=== PATIENT | female | born 1965 | race Caucasian/White ===

== ENCOUNTER 2018-06-20 11:33 | Outpatient (CLI) | payer BC, SELFPAY ==
[2018-06-20 12:49] LABS: Abs Immature Grans 0.02 k/cumm (0.0-0.09); Absolute Basophil Count 0.03 k/cumm (0.0-0.2); Absolute Eosinophil Count 0.28 k/cumm (0.0-0.7); Absolute Lymphocyte Count 1.55 k/cumm (1.2-3.4); Absolute Monocyte Count 0.73 k/cumm (0.11-0.7); Absolute Neutrophil Count 3.84 k/cumm (1.2-6.7); Basophils % 0.5; Eosinophils % 4.3; HCT 41.9 % (36.0-46.0); HGB 13.9 g/dL (12.0-15.5); Immature Grans % 0.3; Mean Corp. HGB Concentration 33.2 g/dL (32.0-36.0); Mean Corpuscular Hemoglobin 28.8 pg (27.0-33.0); Mean Corpuscular Volume 86.7 fL (80-95); Mean Platelet Volume 9.2 fL (8.0-11.0); Monocytes % 11.3; Neutrophils % 59.6; Platelet Count 356 x1000/uL (130-400); RBC 4.83 m/cumm (4.00-5.20); RBC Distribution Width 12.9 % (11.7-14.6); White Blood Cell Count 6.45 k/cumm (4.4-10.8)
[2018-06-20 13:17] LABS: ALT 39 U/L (12-78); AST 16 U/L (15-37); Albumin 3.8 g/dL (3.4-5.0); Alkaline Phosphatase 86 U/L (46-116); Anion Gap 9.2 mmol/L (3-11); BUN 15 mg/dL (7-18); Bilirubin, Total 0.2 mg/dL (0.2-1.0); CO2 28.8 mmol/L (21.0-32.0); CREATININE 0.65 mg/dL (0.55-1.02); Calcium 9.3 mg/dL (8.5-10.1); Chloride 101 mmol/L (98-107); Glucose 113 mg/dL (70-100); Potassium 4.2 mmol/L (3.5-5.1); Sodium 139 mmol/L (136-145); TSH (W/Ref FT4) 0.89 uIU/mL (0.358-3.74)
[2018-06-20 13:42] LABS: ESR 15 MM/HR (0-30)
== END 2018-06-20 11:53 ==
PROVIDERS: PCP Family Medicine; Visit Provider Internal Medicine
DX: F41.0 Panic disorder [episodic paroxysmal anxiety] (principal)
CPT/HCPCS: 36415; 80053; 85652; 84443; 85025

== ENCOUNTER 2018-06-28 01:12 | Outpatient (CLI) | payer OTHER, SELFPAY ==
--- NOTE | 2018-06-28 09:02 | DI.RAD_ITS ---
SYMPTOMS/DIAGNOSIS: CERVICALGIA, M54.2; ASTHMA, J45.909; LUMBAR STRAIN, S39.012A CERVICAL SPINE: Odontoid, AP, lateral and bilateral oblique views were obtained. There is normal alignment of the cervical spine. The odontoid is intact. The lateral masses are well aligned. No acute fractures or subluxations are seen. At C4-C5, there are endplate osteophytes present. At C5-C6, there is disc space narrowing and endplate osteophytes. At C6-C7, endplate osteophytes are present. No significant neural foraminal encroachment is seen. The bones are normally mineralized. IMPRESSION: Mild to moderate degenerative changes in the cervical spine. CHEST X-RAY, PA AND LATERAL: Comparison is 07/31/17. The heart is normal in size. The lungs are clear. The mediastinal structures and pleura appear intact. IMPRESSION: Normal chest. LUMBAR SPINE: AP, lateral and bilateral oblique views. There are five lumbar-type vertebral bodies. No spondylolysis or spondylolisthesis is seen. Disc space narrowing is seen at T12-L1 and L1-L2. There are endplate osteophytes at all levels of the lumbar spine. Degenerative changes of the facets are seen at L3-4, L4-5 and L5-S1. No acute fracture or subluxation is seen. The bones are normally mineralized. IMPRESSION: Mild degenerative changes in the lumbar spine.
== END 2018-06-28 01:32 ==
PROVIDERS: PCP Family Medicine; Visit Provider Internal Medicine
DX: M54.2 Cervicalgia (principal); M47.812 Spondylosis without myelopathy or radiculopathy, cervical region; M54.5 Low back pain; M47.816 Spondylosis without myelopathy or radiculopathy, lumbar region; J45.909 Unspecified asthma, uncomplicated
CPT/HCPCS: 71046; 72050; 72110

== ENCOUNTER 2018-07-22 00:41 | Outpatient (CLI) | payer OTHER, SELFPAY ==
--- NOTE | 2018-07-22 09:44 | DI.MRI_ITS ---
SYMPTOM/DIAGNOSIS: CONTINUED LOW LUMBAR AND LT SACROILIAC PAIN, M99.03, LT FOOT TINGLING, LIFTING INJURIES LUMBAR SPINE MRI: T 1, T 2 and STIR sagittal, T 1 and T 2 axial sequences were performed. At L 3- 4, there is a left sided disc protrusion which appears to impinge on the anterolateral aspect of the thecal sac and may impinge nerve roots. There is no significant bony neural foraminal encroachment. There are mild facet degenerative changes and ligamentous hypertrophy at this level. The L 4-5 level shows mild concentric disc bulging. There are facet degenerative changes and ligamentous hypertrophy which create mild central canal stenosis but no significant neural foraminal narrowing. There are mild facet degenerative changes at L 4-5. The disc appears intact. The L 1-2 and L 2-3 disc levels are unremarkable. The marrow signal is normal with the exception of a small hemangioma in the L 1 vertebral body. IMPRESSION: Small left sided disc protrusion at L 3-4. Mild central canal stenosis at L 4-5.
== END 2018-07-22 01:01 ==
PROVIDERS: PCP Family Medicine; Visit Provider Family Medicine
DX: M54.5 Low back pain (principal); M53.3 Sacrococcygeal disorders, not elsewhere classified; R20.2 Paresthesia of skin; M51.27 Other intervertebral disc displacement, lumbosacral region; M48.061 Spinal stenosis, lumbar region without neurogenic claudication
CPT/HCPCS: 72148

== ENCOUNTER 2018-08-26 01:31 | Outpatient (CLI) | payer OTHER, SELFPAY ==
--- NOTE | 2018-08-26 10:21 | DI.MRI_ITS ---
SYMPTOMS/DIAGNOSIS: CERVICAL NUMBNESS, LOW BACK PAIN MRI OF THE CERVICAL SPINE: Comparison is made with plain films dated June,. T1, T2, STIR, FLAIR and T2 3D sagittal and gradient-echo axial sequences were performed. At C5-6, there are broad-based disc osteophytes and mild loss of normal disc height. There is concentric disc bulging. There is bilateral neural foraminal narrowing, left greater than right. There is effacement of the anterior CSF space. A small amount of CSF remains present posterior to the cord. The remaining discs show no significant bulging or endplate osteophytes. There is no neural foraminal narrowing at the other levels. There is no disc herniation at any level. The marrow signal and cord signal appear normal. IMPRESSION: Degenerative disc changes caused by lateral neural foraminal narrowing, left greater than right, and mild central canal stenosis.
== END 2018-08-26 01:51 ==
PROVIDERS: PCP Family Medicine; Visit Provider Family Medicine
DX: M54.2 Cervicalgia (principal); R20.0 Anesthesia of skin; M54.5 Low back pain; M50.322 Other cervical disc degeneration at C5-C6 level
CPT/HCPCS: 72141

== ENCOUNTER 2018-08-28 07:46 | Outpatient (CLI) | payer OTHER, SELFPAY ==
--- NOTE | 2018-08-28 08:36 | PDOC.PAIN2 ---
History of Present Illness History of Present Illness Chief Complaint: Low back pain to left lower extremity History of Present Illness: Patient was looking at a client and felt low back pain to her left lower extremities. She notes that she has pain and weakness. She saw Dr. Kathleen luke who recommended a L4 nerve block after reviewing her MRI which shows L3-4 left-sided disc herniation in the lateral recess. Review of Systems Medications/Allergies Allergies Allergy/AdvReac Type Severity Reaction Status Date / Time animal dander Allergy Unverified 08/28/18 07:59 pollen extracts Allergy Unverified 08/28/18 07:59 Objective Exam Other physical findings: Patient makes good eye contact and communicates easily. Back: Nontender to palpation. Provocative maneuvers for SI joint pathology were negative. Kemps maneuver is negative Neuro: Sensory is intact to light touch. Patient can heel and toe walk. Strength on flexion at the hips, flexion and extension at the knees and ankles, dorsiflexion of great toes are 5/5 and symmetric. DTRs are attenuated and weak with patella and Achilles. Straight leg raise negative bilaterally. Ambulatory Orders Medication Instructions Recorded Ca-D3-mag ls-uzhp-wvw-yandy-bor 2 tab PO BID tab.chew 11/02/14 methocarbamol 500 mg tablet 500 mg PO QID #40 tab 06/17/18 albuterol sulfate HFA 90 1 - 2 puff INHALATION Q6H PRN #1 07/26/18 mcg/actuation aerosol inhaler inhaler fluticasone 110 mcg/actuation HFA 220 mcg INHALATION BID #3 puff 07/26/18 aerosol inhaler alprazolam 0.5 mg tablet 0.5 mg PO BID PRN #60 tab-cap 08/22/18 methylphenidate 5 mg tablet 10 mg PO BID #120 tab MDD 4 08/23/18 multivitamin oral liquid 10 ml PO DAILY 08/28/18
--- NOTE | 2018-08-28 08:38 | DI.RAD_ITS ---
SYMPTOM/DIAGNOSIS: LUMBAR RADICULOPATHY C-ARM: Fluoroscopy Time: 27.6 seconds Fluoroscopy was provided for guidance with lumbar spine pain clinic injections. Please see procedure note for details.
--- NOTE | 2018-08-28 09:07 | PDOC.PAIN ---
Pain Clinic Procedure Note Current Active Problems Problem Status Onset Herniated nucleus pulposus, L3-4 left Acute LUMBAR / SACRAL TRANSFORAMINAL INJECTION CATRACHITO POLK has been referred to the [facility] for a transforaminal nerve root block and steroid injection. COMMENTS: Herniated disc L3-4 to the left with left L4 symptoms Patient was interviewed and the medical record reviewed. There were no medical, pharmacologic, radiographic or other structural contraindications to attempting fluoroscopically guided transforaminal nerve root block and epidural steroid injection. Risks and expected side effects as well as potential benefit of the procedure were reviewed and voiced concerns addressed. The printed consent form was signed and witnessed. Standard time-out procedure was performed. Patient was placed in the prone position on the fluoroscopy table and automated blood pressure cuff and pulse oximeter applied. Fluoroscopy was utilized to identify the { left } neural foramen between L4 and L5 . A skin winnie was made for the needle insertion site. A Chlorhexadine prep was carried out, and sterile drapes were applied. Local anesthesia was achieved in the skin and subcutaneous tissues. A 22 gauge curved tip spinal needle was then inserted, advanced with fluoroscopic guidance into the neural foramen, confirmed on the lateral view. After negative aspiration, 2 ml of Omnipaque 240 was injected confirming position in A/P and lateral views. This showed a good spread of dye transforaminally into the epidural space. There was no vascular update with contrast injection under continuous fluoroscopy and digital substraction. 40 mg of Depo-Medrol was injected, followed by 1ml of 0.5% bupivacaine flush for the nerve root block, as well. There was no unusual discomfort expressed.The needle was withdrawn. The patient tolerated the procedure well. A Band-Aid was applied. Vital signs were stable throughout the procedure and were as recorded in nursing records. If given, dosages of intravenous drugs for anxiolysis and analgesia were documented in nursing records. Follow up plans and appointments were discussed. Post procedure instruction was given as documented in nursing records and patient was discharged in the care of an identified local delivery truck driver. COMMENTS: Pain went from 4/10 to 0/10. She will follow-up with Dr. Keller. She can return for repeat injection as well if needed . CC: Meera Stanley MD, DC
[2018-08-28] MEDS: methylPREDNISolone ACETATE 40 MG/ML VIAL IJ (09:11)
[2018-08-28] MEDS: Bupivacaine 0.5% Pres-Free 30 ML VIAL IJ (09:12)
[2018-08-28] MEDS: Omnipaque 240 MG/ML 50 ML BTL IJ (09:12)
[2018-08-28 09:13] VITALS: BP 158/96; PULSE 101; RESP 17; O2SAT 98
== END 2018-08-28 08:06 ==
PROVIDERS: PCP Family Medicine; Visit Provider Anesthesiology Pain Medicine
DX: M51.26 Other intervertebral disc displacement, lumbar region (principal); M54.5 Low back pain
CPT/HCPCS: 64483; 72100; J1030; Q9967

== ENCOUNTER 2018-08-29 07:29 | Outpatient (CLI) | payer BC, SELFPAY ==
--- NOTE | 2018-08-29 15:00 | DI.MAMMO_ITS ---
SYMPTOM/DIAGNOSIS: SCREENING, Z12.31 MAMMOGRAMS: Mammograms were interpreted according to the usual protocol including computer analysis with CAD system, tomosynthesis and C view imaging. Comparison is made with the prior examinations. Breast density, category C. No suspicious masses or microcalcifications are seen. There are again seen partially obscured nodules in both breasts, the largest is seen at the 12 o'clock position of the left breast. Overall there has been no significant change compared to the prior examinations. IMPRESSION: No evidence for malignancy. Yearly mammography is recommended. Category 2. MQSA ASSESSMENT OF FINDINGS: Negative with benign findings. Category 2. Patient will receive a letter notifying them of these results. Bi-RADS category C. The breasts are heterogeneously dense, which may obscure small masses.
== END 2018-08-29 07:49 ==
PROVIDERS: PCP Family Medicine; Visit Provider Family Medicine
CPT/HCPCS: 77063; 77067

== ENCOUNTER 2018-11-27 10:23 | Outpatient (CLI) | payer OTHER, MEDICAID, SELFPAY ==
[2018-11-27 10:30] VITALS: BP 143/87; PULSE 126; RESP 20; TEMP 37.3; O2SAT 97
--- NOTE | 2018-11-27 11:00 | DI.RAD_ITS ---
SYMPTOM/DIAGNOSIS: SACROILIAC JOINT DYSFUNCTION, SACROILIAC JOINT INJECTION C-ARM: Fluoroscopy Time: 26.8 sec, 9.52 mGy. Images submitted from the pain clinic demonstrate needle positioning over the inferior portion of the left SI joint in conjunction with an injection carried out by Dr. Day. Please see the procedure report for further information.
--- NOTE | 2018-11-27 11:08 | PDOC.PAIN ---
Pain Clinic Procedure Note Current Active Problems Problem Status Onset SI (sacroiliac) joint dysfunction Chronic INTRA-ARTICULAR SI JOINT INJECTION CATRACHITO POLK has been referred to the [facility] for intra-articular SI joint injection. COMMENTS: Left sacroiliac joint dysfunction Patient was interviewed and the medical record reviewed. There were no medical, pharmacologic, radiographic or other structural contraindications to attempting fluoroscopically guided intra-articular SI joint injection. Risks and expected side effects as well as potential benefit of the procedure were reviewed and voiced concerns addressed. The printed consent form was signed and witnessed. Standard time-out procedure was performed. Patient was placed in the prone position on the fluoroscopy table and automated blood pressure cuff and pulse oximeter applied. The skin entry point for approaching { left } SI joints was identified under the most advantageous fluoroscopic view and marked. Following thorough Chlorhexadine preparation of the skin and draping and 1% lidocaine infiltration of the skin entry point and subcutaneous tissues, a 22 gauge spinal needle was placed under fluoroscopic guidance into { /left/ } SI joints was identified under the most advantageous fluoroscopic view and marked. Following thorough Chlorhexadine preparation of the skin and draping and 1% lidocaine infiltration of the skin entry point and subcutaneous tissues, a 22 gauge spinal needle was placed under fluoroscopic guidance into { /left/ } SI joint. Intra-articular placement was confirmed by a clear arthrogram resulting from the injection of 0.25ml Omnipaque 240, 1ml 0.5% bupivacaine, and half ml (40mg) of 80mg concentration Depomedrol were injected intra-articularily with an initial reproduction of a significant component of the usual pain. Vital signs were stable throughout the procedure and were as recorded in the docflowsheet by the nursing staff. If given, dosages of intravenous drugs for anxiolysis and analgesia were documented in MAR. Follow up plans and appointments were discussed with the patient. Post procedure instruction was given as documented in nursing documentation and having met discharge criteria, and was discharged from the [facility]. COMMENTS: Her pain went from 11/20-08/22. She will follow up as needed. CC: Meera Stanley MD, DC
[2018-11-27 11:09] VITALS: BP 162/90; PULSE 125; RESP 20; O2SAT 97
[2018-11-27] MEDS: Bupivacaine 0.5% Pres-Free 10 ML VIAL IJ (11:10)
[2018-11-27] MEDS: Omnipaque 240 MG/ML 50 ML BTL IJ (11:10)
[2018-11-27] MEDS: methylPREDNISolone ACETATE 80 MG/ML VIAL IJ (11:10)
--- NOTE | 2018-11-27 11:11 | PDOC.PAIN_ITS ---
Pain Clinic Procedure Note Current Active Problems Problem Status Onset SI (sacroiliac) joint dysfunction Chronic INTRA-ARTICULAR SI JOINT INJECTION CATRACHITO POLK has been referred to the [facility] for intra- articular SI joint injection. COMMENTS: Left sacroiliac joint dysfunction Patient was interviewed and the medical record reviewed. There were no medical, pharmacologic, radiographic or other structural contraindications to attempting fluoroscopically guided intra-articular SI joint injection. Risks and expected side effects as well as potential benefit of the procedure were reviewed and voiced concerns addressed. The printed consent form was signed and witnessed. Standard time-out procedure was performed. Patient was placed in the prone position on the fluoroscopy table and automated blood pressure cuff and pulse oximeter applied. The skin entry point for approaching { left } SI joints was identified under the most advantageous fluoroscopic view and marked. Following thorough Chlorhexadine preparation of the skin and draping and 1% lidocaine infiltration of the skin entry point and subcutaneous tissues, a 22 gauge spinal needle was placed under fluoroscopic guidance into { /left/ } SI joints was identified under the most advantageous fluoroscopic view and marked. Following thorough Chlorhexadine preparation of the skin and draping and 1% lidocaine infiltration of the skin entry point and subcutaneous tissues, a 22 gauge spinal needle was placed under fluoroscopic guidance into { /left/ } SI joint. Intra-articular placement was confirmed by a clear arthrogram resulting from the injection of 0.25ml Omnipaque 240, 1ml 0.5% bupivacaine, and half ml (40mg) of 80mg concentration Depomedrol were injected intra-articularily with an initial reproduction of a significant component of the usual pain. Vital signs were stable throughout the procedure and were as recorded in the docflowsheet by the nursing staff. If given, dosages of intravenous drugs for anxiolysis and analgesia were documented in MAR. Follow up plans and appointments were discussed with the patient. Post procedure instruction was given as documented in nursing documentation and yana richards met discharge criteria, and was discharged from the [facility]. COMMENTS: Her pain went from 11/20-08/22. She will follow up as needed. CC: Meera Stanley MD, DC
== END 2018-11-27 10:43 ==
PROVIDERS: PCP Family Medicine; Visit Provider Anesthesiology Pain Medicine
DX: M53.3 Sacrococcygeal disorders, not elsewhere classified (principal)
CPT/HCPCS: 27096; 72200; J1040; Q9967

== ENCOUNTER 2018-12-23 11:54 | Outpatient (CLI) | payer MEDICAID, SELFPAY ==
[2018-12-23 12:57] LABS: HCT 39.4 % (36.0-46.0); HGB 13.2 g/dL (12.0-15.5); Mean Corp. HGB Concentration 33.5 g/dL (32.0-36.0); Mean Corpuscular Hemoglobin 29.3 pg (27.0-33.0); Mean Corpuscular Volume 87.6 fL (80-95); Mean Platelet Volume 9.1 fL (8.0-11.0); Platelet Count 294 x1000/uL (130-400); RBC Distribution Width 12.3 % (11.7-14.6); White Blood Cell Count 6.43 k/cumm (4.4-10.8)
[2018-12-23 13:52] LABS: ALT 89 U/L (12-78); AST 37 U/L (15-37); Albumin 3.9 g/dL (3.4-5.0); Alkaline Phosphatase 87 U/L (46-116); Anion Gap 9.2 mmol/L (3-11); BUN 10 mg/dL (7-18); Bilirubin, Total 0.3 mg/dL (0.2-1.0); CO2 28.8 mmol/L (21.0-32.0); CREATININE 0.72 mg/dL (0.55-1.02); Calcium 9.1 mg/dL (8.5-10.1); Chloride 104 mmol/L (98-107); Glucose 88 mg/dL (70-100); Potassium 4.2 mmol/L (3.5-5.1); Sodium 142 mmol/L (136-145)
== END 2018-12-23 12:14 ==
PROVIDERS: PCP Family Medicine; Visit Provider Family Medicine
DX: M51.26 Other intervertebral disc displacement, lumbar region (principal); Z01.818 Encounter for other preprocedural examination; M54.16 Radiculopathy, lumbar region
CPT/HCPCS: 36415; 80053; 85027

== ENCOUNTER 2019-08-28 07:27 | Outpatient (CLI) | payer OTHER, SELFPAY ==
--- NOTE | 2019-08-28 10:02 | DI.RAD_ITS ---
EXAM: XR HIP LT COMPLETE AP PELVIS INDICATION: left hip pain M25.552. COMPARISON: XR lumbar spine complete from 06/28/2018 TECHNIQUE: 2D digital imaging was performed. FINDINGS: There is mild bilateral acetabular spurring as well as spurring at the greater trochanters and iliac wings. The hip joint spaces are well maintained. There is minimal SI joint spurring. IMPRESSION: Mild degenerative changes.
--- NOTE | 2019-08-28 10:04 | DI.RAD_ITS ---
EXAM: XR SACROILIAC JOINTS INDICATION: SI pain M53.3. COMPARISON: No exams were available for comparison TECHNIQUE: 2D digital imaging was performed. FINDINGS: No widening of the SI joints. There is minimal spurring inferiorly. No bony erosions are seen. The re is no evidence of fracture. The hip joints show mild acetabular spurring. IMPRESSION: Minimal degenerative changes.
== END 2019-08-28 07:47 ==
PROVIDERS: PCP Family Medicine; Visit Provider Family Medicine
DX: M25.552 Pain in left hip (principal); M53.3 Sacrococcygeal disorders, not elsewhere classified; M16.12 Unilateral primary osteoarthritis, left hip
CPT/HCPCS: 72202; 73502

== ENCOUNTER → 2019-10-16 | Outpatient (CLI) | payer MEDICAID, SELFPAY ==
--- NOTE | 2019-10-16 13:53 | OPPNE_ITS ---
Date of service: 10/16/19 Time of Service: 13:53 Procedure Note Date of procedure: 10/16/19 Procedure: Left Hip Injection with Fluoroscopic Guidance Surgeon/Proceduralist/Physician: James Beckford Procedure Diagnosis: Left Hip Femoroacetabular Impingement, Pain Procedure Indications: Charmaine has had persistent pain of the LEFT hip and groin. Noninvasive measures have been tried. To serve as both diagnostic and therapeutic, an injection under fluoroscopy was recommended. I had discussed the risks of the procedure and the patient elected to proceed. Procedure Description: Charmaine was greeted in the flouroscopy room. The correct side was identified and the consent was reviewed with the patient and signed. The patient was then placed in the supine position on the fluoroscopy table. The LEFT hip was then prepped with Chloraprep. The anterolateral injection starting point was identiifed by bony landmarks and fluoroscopy. The skin and soft tissue in the tract of the injection was anesthetized with 1% Lidocaine. A spinal needle was then inserted deep into the hip joint at the level of the lateral femoral neck under fluor oscopic guidance. A small amount of Omnipaque solution was injected to confirm intraarticular placement. Once confirmed, the hip was injected with 6cc of 0.5% Bupivicaine and 80mg of Depo-Medrol. A bandaid was placed on the injection site. The patient tolerated the procedure well and noted improvement in pre- injection pain.
[2019-10-16] MEDS: Omnipaque 300 MG/ML 10 ML BTL IJ (14:34)
[2019-10-16] MEDS: Bupivacaine 0.5% Pres-Free 10 ML VIAL 6 ML IJ (14:35)
[2019-10-16] MEDS: methylPREDNISolone ACETATE 80 MG/ML VIAL IM (14:36)
--- NOTE | 2019-10-16 14:36 | DI.RAD_ITS ---
EXAM: RF JOINT INJECTION FLUORO GUID CLINICAL HISTORY: PAIN-L HIP INJ UNDER FLUORO, ARTHRITIS LT HIP, M16.12 TECHNIQUE: 2D and realtime digital imaging was performed. water soluble contrast was administered. COMPARISON: No exams were available for comparison FINDINGS: Fluoroscopy was provided for Dr. Beckford during the performance of a left hip injection. Please re nori to the procedure report for complete details. Fluoro time: 4 seconds IMPRESSION:
== END ==
PROVIDERS: PCP Family Medicine; Visit Provider Student in an Organized Health Care Education/Training Program
DX: M25.552 Pain in left hip (principal); M16.12 Unilateral primary osteoarthritis, left hip
CPT/HCPCS: 20610; 77002; J1040

== ENCOUNTER 2019-12-25 12:46 | Outpatient (CLI) | payer MEDICAID, SELFPAY ==
--- NOTE | 2019-12-25 06:00 | DI.RAD_ITS ---
EXAM: XR PAIN CLINIC SACRIOILIAC 2V CLINICAL HISTORY: Dx: Sacroiliac Joint Dysfunction TECHNIQUE: 2D and realtime digital imaging was performed. Fluoroscopy was provided in the OR COMPARISON: No exams were available for comparison FINDINGS: C-arm fluoroscopy was utilized by Dr. Das during left SI joint injection. Hard copy shows left SI j oint injection. Fluoro time 22.6 seconds IMPRESSION: RADIATION DOSE DELIVERED: Total DLP
[2019-12-25 13:13] VITALS: BP 133/77; PULSE 91; RESP 16; TEMP 37.1; O2SAT 96
[2019-12-25 13:40] VITALS: BP 140/83; PULSE 102; RESP 21; O2SAT 95
[2019-12-25] MEDS: Omnipaque 240 MG/ML 50 ML BTL IJ (13:49)
[2019-12-25] MEDS: methylPREDNISolone ACETATE 40 MG/ML VIAL IJ (13:49)
--- NOTE | 2019-12-25 13:51 | PDOC.PAIN_ITS ---
Pain Clinic Procedure Note Procedure Note Procedure Note: INTRA-ARTICULAR SI JOINT INJECTION CATRACHITO PLOK has been referred to the [facility] for intra- articular SI joint injection. COMMENTS: This procedure was completed on 11/28/[address] Day with good results for many months. DX: Sacroiliac joint dysfunction Patient was interviewed and the medical record reviewed. There were no medical, pharmacologic, radiographic or other structural contraindications to attempting fluoroscopically guided intra-articular SI joint injection. Risks and expected side effects as well as potential benefit of the procedure were reviewed and voiced concerns addressed. The printed consent form was signed and witnessed. Standard time-out procedure was performed. Patient was placed in the prone position on the fluoroscopy table and automated blood pressure cuff and pulse oximeter applied. The skin entry point for approaching the left SI joint was identified under the most advantageous fluoroscopic view and marked. Following thorough Chlorhexadine preparation of the skin and draping and 1% lidocaine infiltration of the skin entry point and subcutaneous tissues, a 22 gauge spinal needle was placed under fluoroscopic guidance into the left SI joint. Intra-articular placement was confirmed by a clear arthrogram resulting from the injection of 0.25ml Omnipaque 240, 1ml 1% lidocaine, and 40mg Depomedrol were injected intra-articularily with an initial reproduction of a significant component of the usual pain. Vital signs were stable throughout the procedure and were as recorded in the docflowsheet by the nursing staff. If given, dosages of intravenous drugs for anxiolysis and analgesia were documented in MAR. Follow up plans and appointments were discussed with the patient. Post procedure instruction was given as documented in nursing documentation and having met discharge criteria, and was discharged from the [facility]. COMMENTS: The did exceedingly well with the procedure. CC: Meera Stanley MD, DC
== END 2019-12-25 13:06 ==
PROVIDERS: PCP Family Medicine; Visit Provider Preventive Medicine Occupational Medicine
DX: M53.3 Sacrococcygeal disorders, not elsewhere classified (principal)
CPT/HCPCS: 27096; 72200; J1030; Q9967

== ENCOUNTER 2020-01-22 15:58 | Outpatient (CLI) | payer MEDICAID, SELFPAY ==
--- NOTE | 2020-01-22 12:45 | DI.RAD_ITS ---
EXAM: XR PELVIS AP CLINICAL HISTORY: PREOPERATIVE. TECHNIQUE: 2D digital imaging was performed. COMPARISON: No exams were available for comparison FINDINGS: There are mild degenerative changes seen of the left hip. The sacroiliac joints and symphysis pubis appear unremarkable. The bones are normally mineralized. The soft tissues are unremarkable. IMPRESSION: DATA REPOSITORY: RADIATION DOSE DELIVERED:
== END 2020-01-22 16:18 ==
PROVIDERS: PCP Family Medicine; Referring Provider Family Medicine; Visit Provider Physician Assistant Surgical
DX: M16.12 Unilateral primary osteoarthritis, left hip (principal)
CPT/HCPCS: 72170

== ENCOUNTER 2020-01-23 02:12 | Outpatient (CLI) | payer MEDICAID, SELFPAY ==
--- NOTE | 2020-01-23 07:30 | DI.MAMMO_ITS ---
EXAM: MG MAMMO SCREENING CLINICAL HISTORY: screening,z12.39 TECHNIQUE: Bilateral full field digital CC and MLO mammographic images were obtained with 3D tomosyn thesis and utilizing computer aided detection (CAD). COMPARISON: Available for comparison. FINDINGS: Masses/Architectural Distortion: There has been interval increase in size and irregularity of the bor ders of a nodule in the upper outer quadrant of the left breast. Microcalcifications: No suspicious pleomorphic-type are seen. Skin Thickening/Nipple Retraction: None. IMPRESSION: 1. Interval increase in size of a nodule in the upper outer quadrant of the left breast. 2. Spot compression views requested. Ultrasound may be indicated at that time. BI-RADS Category 0 - Assessment Incomplete: Need additional imaging evaluation Breast Density - Category C - Heterogeneously dense The mammogram demonstrates the patient's breast tissue is dense. Dense breast tissue is very common a nd is not abnormal but dense breast tissue can make it harder to find cancer on a mammogram. Also, de nse breast tissue may increase their breast cancer risk. This information about the result of the [facility] report was provided to the patient to raise their awareness. Use this report when you speak wi th the patient about their risks for breast cancer, which includes their family history. At that time , you may recommend for more screening tests (Ultrasound or MRI) as they might be useful based on the ir risk. A negative radiographic report should not delay biopsy if a dominant or clinically suspicious mass is present. Up to ten percent of cancers are not identified on mammography. A negative report may reinforce clinical impression. Adenosis and dense breasts may obscure an underlying neoplasm. False positive reports average 6 to 10%. Patient will receive a letter notifying them of these results.
== END 2020-01-23 02:32 ==
PROVIDERS: PCP Family Medicine; Visit Provider Family Medicine
DX: Z12.31 Encounter for screening mammogram for malignant neoplasm of breast (principal); R92.8 Other abnormal and inconclusive findings on diagnostic imaging of breast
CPT/HCPCS: 77063; 77067

== ENCOUNTER 2020-01-26 01:18 | Outpatient (CLI) | payer MEDICAID, SELFPAY ==
--- NOTE | 2020-01-26 15:00 | DI.MRI_ITS ---
EXAM: MR LOWER JOINT LT WO CLINICAL HISTORY: lt hip pain, m25.859 joint disorder, m16.12 osteoarthritis. TECHNIQUE: Multiplanar multisequence MRI was performed. COMPARISON: CR XR HIP LT COMPLETE AP PELVIS from 08/28/2019 CR XR PELVIS AP from 01/22/2020 FINDINGS: The marrow signal is normal. There are no hip joint effusion. No tendon tear or muscle tear is se en. There are no bursal collections. Degenerative spurring is seen at the superior acetabula. The visualized portions of the SI joints are unremarkable. The sigmoid colon shows severe prominent diverticulosis and muscular hypertrophy. The bladder is unr emarkable. The patient is status post hysterectomy. The ovaries have a postmenopausal appearance. IMPRESSION: Mild degenerative changes of both hips. No acute abnormality. Severe sigmoid diverticulosis is not ed. DATA REPOSITORY:
== END 2020-01-26 01:38 ==
PROVIDERS: PCP Family Medicine; Visit Provider Student in an Organized Health Care Education/Training Program
DX: M25.552 Pain in left hip (principal); M16.0 Bilateral primary osteoarthritis of hip; M25.852 Other specified joint disorders, left hip
CPT/HCPCS: 73721

== ENCOUNTER 2020-01-28 02:24 | Outpatient (CLI) | payer MEDICAID, SELFPAY ==
--- NOTE | 2020-01-28 | DI.MAMMO_ITS ---
EXAM: US BREAST LT LIMITED AND LEFT BREAST CALL BACK VIEWS CLINICAL HISTORY: nodularity lt breast, F/U ABNL MAMMO, INCREASE IN SIZE AND IRREGULARITY OF BORDERS OF NODULE TECHNIQUE: Ultrasound right breast performed using standard protocol. COMPARISON: Mammograms from 2015 through 2019. FINDINGS: Spot compression views with tomography were performed of an area of nodularity in the upper outer osorio drant. There is a persistent lobulated area of nodularity seen in the upper outer. The borders appe ar smooth. There are no associated calcifications. Left breast ultrasound: There is a cyst with lobulation and septation in the upper outer quadrant maximiliano suring 1.7 x 0.9 x 1.6 cm. There are no suspicious features. No solid masses, hypoechoic foci, area s of abnormal shadowing, or areas of skin thickening. IMPRESSION: Lobulated cyst with septations in the upper outer quadrant. BI-RADS CATEGORY 3: Probably Benign Findings - Short Interval Follow-Up Suggested. DATA REPOSITORY:
== END 2020-01-28 02:44 ==
PROVIDERS: PCP Family Medicine; Visit Provider Family Medicine
DX: Z12.31 Encounter for screening mammogram for malignant neoplasm of breast (principal); R92.8 Other abnormal and inconclusive findings on diagnostic imaging of breast; N60.02 Solitary cyst of left breast
CPT/HCPCS: 76642; 77063; 77067

== ENCOUNTER 2020-05-25 15:30 | Outpatient (REF) | payer MEDICAID, SELFPAY ==
[2020-05-26 11:56] LABS: *AMPHETAMINES SCREEN URINE Negative (Negative); *BARBITURATES SCREEN URINE Negative (Negative); *BENZODIAZEPINES SCREEN URINE POSITIVE (Negative); Cannabinoids THC Negative (Negative); Cocaine Screen,Urine Negative (Negative); METHADONE URINE SCREEN Negative (Negative); OPIATES URINE SCREEN Negative (Negative)
[2020-05-26 12:01] LABS: Tricyclic Antidepressants Negative (Negative)
[2020-06-03 10:11] LABS: O-desmethyltramadol 24271 ng/mL (Cutoff:25)
== END 2020-05-25 15:50 ==
LOC: LBN 15:30
PROVIDERS: PCP Family Medicine; Visit Provider Family Medicine
DX: G89.4 Chronic pain syndrome (principal); Z79.899 Other long term (current) drug therapy
CPT/HCPCS: 80307; 80373

== ENCOUNTER 2020-08-02 00:49 | Outpatient (CLI) | payer MEDICAID, SELFPAY ==
--- NOTE | 2020-08-02 | DI.US_ITS ---
EXAM: MG MAMMO DIAGNOSTIC UNI and U/S breast LT limited CLINICAL HISTORY: F/U ABNORMAL MAMMO,R92.8. TECHNIQUE: Craniocaudal and mediolateral oblique Full Field Digital Mammography views with Computer Aided Diagnosis followed by Tomosynthesis and left breast ultrasound. COMPARISON: Priors available for comparison. FINDINGS: Mammography/Tomosynthesis: Masses/Architectural Distortion: The lobulated soft tissue nodule in the upper outer quadrant of the left breast is unchanged. Microcalcifictions: No suspicious pleomorphic-type are seen. Skin Thickening/Nipple Retraction: None. Left breast US: Echotexture: Normal appearance of the glandular tissue. Shadowing: No suspicious foci. Cyst: There has been no change in the 1.8 x 0.9 x 1.7 cm septated cyst at the 12 o'clock position of the left breast 3 cm from the nipple. Solid lesions: None seen. Ductal dilation: None. IMPRESSION: 1. No evidence of malignancy is noted. 2. A six-month follow-up left breast ultrasound should be obtained. At that time the patient will be scheduled for her bilateral mammogram. 3. The findings were discussed with the patient on the date of the examination. BI-RADS Category 3 - 6 month - Probably Benign Finding: Recommend follow-up mammography in 6 months Breast Density - Category C - Heterogeneously dense The mammogram demonstrates the patient's breast tissue is dense. Dense breast tissue is very common a nd is not abnormal but dense breast tissue can make it harder to find cancer on a mammogram. Also, de nse breast tissue may increase their breast cancer risk. This information [facility] was provided to the patient to raise their awareness. Use this report when you speak wi th the patient about their risks for breast cancer, which includes their family history. At that time , you may recommend for more screening tests (Ultrasound or MRI) as they might be useful based on the ir risk. A negative radiographic report should not delay biopsy if a dominant or clinically suspicious mass is present. Up to ten percent of cancers are not identified on mammography. A negative report may reinforce clinical impression. Adenosis and dense breasts may obscure an underlying neoplasm. False positive reports average 6 to 10%. Patient will receive a letter notifying them of these results.
== END 2020-08-02 01:09 ==
PROVIDERS: PCP Family Medicine; Visit Provider Family Medicine
DX: N60.02 Solitary cyst of left breast (principal); R92.8 Other abnormal and inconclusive findings on diagnostic imaging of breast
CPT/HCPCS: 76642; 77061; 77065; G0279

== ENCOUNTER 2020-10-18 11:22 | Outpatient (CLI) | payer MEDICAID, SELFPAY ==
[2020-10-19 12:26] LABS: COVID-19 RT-PCR UVMMC Result Negative (Negative)
== END 2020-10-18 11:23 | disposition home or self-care (01) ==
LOC: LBO 11:23
PROVIDERS: PCP Family Medicine; Visit Provider Family Medicine
DX: Z20.822 Contact with and (suspected) exposure to COVID-19 (principal)
CPT/HCPCS: U0003

== ENCOUNTER 2021-02-15 03:08 | Outpatient (CLI) | payer MEDICARE, MEDICAID, SELFPAY ==
--- NOTE | 2021-02-15 08:23 | DI.US_ITS ---
Exam(s) US BREAST LT LIMITED MG MAMMO SCREENING EXAM: MG MAMMO SCREENING and ultrasound left limited CLINICAL HISTORY: RESUME ANNUAL SCREENING, 6 MONTH F/U, F/U MAMMO, R92.8. TECHNIQUE: Craniocaudal and mediolateral oblique Full Field Digital Mammography views of the bilater al breast with Computer Aided Diagnosis followed by Tomosynthesis and left breast ultrasound. COMPARISON: Priors available for comparison. FINDINGS: Mammography/Tomosynthesis: Masses/Architectural Distortion: The well-circumscribed nodule at the 12 o'clock position of the left breast is unchanged. No areas of architectural distortion. Microcalcifictions: No suspicious pleomorphic-type are seen. Skin Thickening/Nipple Retraction: None. Left breast US: Echotexture: Normal appearance of the glandular tissue. Shadowing: No suspicious foci. Cyst: There has been interval decrease in size of the septated cyst at the 12 o'clock position of the left breast 3 cm from the nipple. This corresponds to the mammographic abnormality. The cyst now m easures 1.3 x 1.1 x 1.2 cm. This compares with 1.8 x 0.9 x 1.7 cm. Solid lesions: None seen. Ductal dilation: None. IMPRESSION: 1. No evidence of malignancy is noted. 2. Unless there is more urgent need, follow-up screening mammography is recommended, as per [employer] guidelines. 3. The findings were discussed with the patient on the date of the examination. BI-RADS Category 2 - Benign Findings Breast Density - Category C - Heterogeneously dense Breast density Category C or D implies that the patient has dense breast tissue. Dense breast tissue can make it harder to find cancer on a mammogram. Dense breast tissue is also associated with an incr eased risk of breast cancer. This information about the result of the mammogram report was provided to the patient to raise their awareness. Use this report when you speak with the patient about their risks for breast cancer, which includes their family history. At that time, you may recommend additional screening tests (Ultrasoun d or MRI) as these tests may add significant information. A negative radiographic report should not delay biopsy if a dominant or clinically suspicious mass is present. Up to ten percent of cancers are not identified on mammography. A negative report may reinforce clinical impression. Adenosis and dense breasts may obscure an underlying neoplasm. False positive reports average 6 to 10%. Patient will receive a letter notifying them of these results.
== END 2021-02-15 03:28 ==
PROVIDERS: PCP Family Medicine; Visit Provider Family Medicine
DX: Z12.31 Encounter for screening mammogram for malignant neoplasm of breast (principal); Z09 Encounter for follow-up examination after completed treatment for conditions other than malignant neoplasm; R92.8 Other abnormal and inconclusive findings on diagnostic imaging of breast
CPT/HCPCS: 76642; 77063; 77067

== ENCOUNTER 2021-11-10 16:32 | Outpatient (REF) | payer MEDICARE, MEDICAID, SELFPAY ==
[2021-11-10 14:44] LABS: *AMPHETAMINES SCREEN URINE Negative (Negative); *BARBITURATES SCREEN URINE Negative (Negative); *BENZODIAZEPINES SCREEN URINE Positive (Negative); Cannabinoids THC Negative (Negative); Cocaine Screen,Urine Negative (Negative); METHADONE URINE SCREEN Negative (Negative); OPIATES URINE SCREEN Negative (Negative)
[2021-11-10 14:46] LABS: Tricyclic Antidepressants Negative (Negative)
== END 2021-11-10 16:33 | disposition home or self-care (01) ==
LOC: LBN 16:32
PROVIDERS: PCP Family Medicine; Visit Provider Family Medicine
DX: G89.4 Chronic pain syndrome (principal)
CPT/HCPCS: 80307

== ENCOUNTER 2022-07-21 14:46 | Outpatient (REF) | payer MEDICARE, MEDICAID, SELFPAY | END 2022-07-21 14:47 | disposition home or self-care (01) | LOC: LBN 14:46 | PROVIDERS: PCP Family Medicine; Visit Provider Nurse Practitioner Family | DX: N39.0 Urinary tract infection, site not specified (principal) | CPT/HCPCS: 87077; 87086; 87186 ==

== ENCOUNTER 2022-09-18 03:21 | Outpatient (CLI) | payer MEDICARE, MEDICAID, SELFPAY ==
[2022-09-18 08:43] LABS: HCT 42.9 % (36.0-46.0); MCH 28.6 pg (27.0-33.0); MCHC 32.6 % (32.0-36.0); MCV 88 fL (80-95); MPV 8.9 fL (8.0-11.0); Platelet Count 353 10^3/uL (130-400); RBC 4.89 10^6/uL (3.93-5.22); RDW 12.6 % (11.7-14.6); RDW-SD 40.5 fL; WBC 6.16 10^3/uL (4.4-10.8)
[2022-09-18 09:23] LABS: ALT 22 U/L (14-59); AST 16 U/L (15-37); Alkaline Phosphatase 75 U/L (46-116); Anion Gap 8.8 mmol/L (3-11); BUN 14 mg/dL (7-18); Bilirubin, Total 0.3 mg/dL (0.2-1.0); CO2 30.2 mmol/L (21.0-32.0); CREATININE 0.7 mg/dL (0.55-1.02); Calculated LDL 194 mg/dL (<100); Chloride 103 mmol/L (98-107); Cholesterol 292 mg/dL (<200); Estimated GFR 99.57 (mL/min/1.73m2); Glucose 94 mg/dL (74-106); HDL Cholesterol 49 mg/dL (40-60); Sodium 142 mmol/L (136-145); TSH (W/Ref FT4) 1.21 uIU/mL (0.36-3.74); Total Protein 7.2 g/dL (6.4-8.2); Triglyceride 249 mg/dL (<150)
== END 2022-09-18 03:22 | disposition home or self-care (01) ==
LOC: LBO 03:22
PROVIDERS: PCP Family Medicine; Visit Provider Family Medicine
DX: Z00.00 Encounter for general adult medical examination without abnormal findings (principal); E78.5 Hyperlipidemia, unspecified
CPT/HCPCS: 36415; 80053; 80061; 85027; 84443

== ENCOUNTER 2022-09-22 01:04 | Outpatient (CLI) | payer MEDICARE, MEDICAID, SELFPAY ==
--- NOTE | 2022-09-22 06:45 | DI.MAMMO_ITS ---
Exam(s) MAMMO SCREENING EXAM: MAMMO SCREENING CLINICAL HISTORY: screening,Z12.39 TECHNIQUE: Bilateral full field digital CC and MLO mammographic images were obtained with 3D tomosyn thesis and utilizing computer aided detection (CAD). COMPARISON: Available for comparison. FINDINGS: Masses/Architectural Distortion: The nodular density in the upper central left breast has shown inter susi decrease in size. No suspicious masses or areas of architectural distortion are present. Microcalcifications: No suspicious pleomorphic-type are seen. Skin Thickening/Nipple Retraction: None. IMPRESSION: 1. No significant interval change with no specific features of malignancy noted. 2. Unless there is more urgent need, screening mammography is recommended, as per [employer] guidelines. BI-RADS Category 2 - Benign Findings Breast Density - Category C - Heterogeneously dense Breast density category C or D implies that the patient has dense breast tissue. Dense breast tissue is very common and is not abnormal but dense breast tissue can make it harder to find cancer on a ma mmogram. Also, dense breast tissue may increase their breast cancer risk. This information about the result of the mammogram report was provided to the patient to raise their awareness. Use this report when you speak with the patient about their risks for breast cancer, which includes their family hist ory. At that time, you may recommend for more screening tests (Ultrasound or MRI) as they might be us eful based on their risk. A negative radiographic report should not delay biopsy if a dominant or clinically suspicious mass is present. Up to ten percent of cancers are not identified on mammography. A negative report may reinforce clinical impression. Adenosis and dense breasts may obscure an underlying neoplasm. False positive reports average 6 to 10%. Patient will receive a letter notifying them of these results.
== END 2022-09-22 01:24 ==
LOC: DI 01:05
PROVIDERS: PCP Family Medicine; Visit Provider Family Medicine
DX: Z12.31 Encounter for screening mammogram for malignant neoplasm of breast (principal); R92.8 Other abnormal and inconclusive findings on diagnostic imaging of breast
CPT/HCPCS: 77063; 77067

== ENCOUNTER 2022-12-13 14:08 | Outpatient (REF) | payer MEDICARE, MEDICAID, SELFPAY ==
--- NOTE | 2022-12-13 13:30 | VUL_PTH ---
PATIENT: Charmaine Harmon LOC: [facility] U#:[id number] AGE/SX: 57/F ROOM: RE12/13/[address]: Charmaine Salazar DO : 1965 BED: DIS: 12/13/2022 SPEC #: [id number] RECD: 12/13/22 16:09 STATUS: KAYLA RE #: [id number] PHUONG: 12/13/22 13:[address]: Charmaine Salazar DEPT: Surgical Specimen RECD BY: Piedad Dotson ENTERED: 12/13/22 16:10 SP TYPE: VUL OTHR DR: Meera Stanley MD, DC Tissues: 1 - VULVA BIOPSY Procedures: GROSS AND MICRO LEVEL 4 Comments: [id number]
== END 2022-12-13 14:09 | disposition home or self-care (01) ==
LOC: LBN 14:08
PROVIDERS: PCP Family Medicine; Visit Provider Obstetrics & Gynecology
DX: N90.89 Other specified noninflammatory disorders of vulva and perineum (principal); L30.8 Other specified dermatitis
CPT/HCPCS: 88305

== ENCOUNTER 2023-02-12 14:42 | Outpatient (REF) | payer MEDICARE, MEDICAID, SELFPAY ==
[2023-02-22 08:00] LABS: O-desmethyltramadol Negative ng/mL (Cutoff:25); Tramadol Negative ng/mL (Cutoff:25)
== END 2023-02-12 14:43 | disposition home or self-care (01) ==
LOC: LBN 14:42
PROVIDERS: PCP Family Medicine; Visit Provider Family Medicine
DX: G89.4 Chronic pain syndrome (principal)
CPT/HCPCS: 80373

== ENCOUNTER → 2023-10-12 00:15 | Outpatient (CLI) | payer MEDICARE, MEDICAID, SELFPAY ==
--- NOTE | 2023-10-12 07:00 | DI.MAMMO_ITS ---
Exam(s) MAMMO SCREENING EXAM: MAMMO SCREENING CLINICAL HISTORY: screening,z12.39 TECHNIQUE: Bilateral full field digital CC and MLO mammographic images were obtained with 3D tomosyn thesis and utilizing computer aided detection (CAD). COMPARISON: Available for comparison. FINDINGS: Masses/Architectural Distortion: There again seen bilateral breast nodules. There has been continued interval decrease in size of the nodule seen in the central left breast on the CC view. No new nodu les. No areas of architectural distortion are seen. Microcalcifications: No suspicious pleomorphic-type are seen. Skin Thickening/Nipple Retraction: None. IMPRESSION: 1. No significant interval change with no specific features of malignancy noted. 2. Unless there is more urgent need, screening mammography is recommended, as per [employer] guidelines. BI-RADS Category 2 - Benign Findings Breast Density - Category C - Heterogeneously dense Breast density category C or D implies that the patient has dense breast tissue. Dense breast tissue is very common and is not abnormal but dense breast tissue can make it harder to find cancer on a ma mmogram. Also, dense breast tissue may increase their breast cancer risk. This information about the result of the mammogram report was provided to the patient to raise their awareness. Use this report when you speak with the patient about their risks for breast cancer, which includes their family hist ory. At that time, you may recommend for more screening tests (Ultrasound or MRI) as they might be us eful based on their risk. A negative radiographic report should not delay biopsy if a dominant or clinically suspicious mass is present. Up to ten percent of cancers are not identified on mammography. A negative report may reinforce clinical impression. Adenosis and dense breasts may obscure an underlying neoplasm. False positive reports average 6 to 10%. Patient will receive a letter notifying them of these results.
--- NOTE | 2023-10-12 07:00 | DI.DEXA_ITS ---
Exam(s) XR DEXA BONE DENSITY W/WO BRIDGETTE EXAM: XR DEXA BONE DENSITY W/WO BRIDGETTE CLINICAL HISTORY: post menopausal,screening for osteoporosis,z78.0 TECHNIQUE: [employer] C densitometer analysis of left hip, lumbar spine and left forearm. Lat eral survey image of the thoracic and lumbar spine. COMPARISON: MR MR LOWER JOINT LT WO from 01/26/2020 FINDINGS: Lateral view of the thoracic and lumbar spine shows no evidence of compression fractures. Bone mineral density measurements of the lumbar spine correspond to a total T-score of 0.6, in the no rmal range. Bone mineral density measurements of the left hip correspond to a total T-score of -0.1. The femoral neck T-score is 0.5, in the normal range. Theleft forearm bone mineral density measurements correspond to a T-score of the distal 3rd of -0.8, in the normal range. IMPRESSION: Normal bone mineral density.
--- NOTE | 2023-10-12 10:30 | DI.CTLCSR_ITS ---
Exam(s) CT CHEST LUNG CANCER SCREEN EXAM: CT CHEST LUNG CANCER SCREEN CLINICAL HISTORY: Screening for lung cancer,former smoker, z87.891 TECHNIQUE: Imaging Protocol: Axial computed tomography images with coronal and sagittal reformatted images were created and reviewed COMPARISON: CR XR CHEST 2V PA LATERAL from 06/28/2018 FINDINGS: Tracheobronchial tree: Patent where visualized. Pulmonary parenchyma: No consolidation or dominant measurable mass. No architectural distortion. Ther e is mild scarring in the medial aspect of the right lower lobe. Lung Nodules: No suspicious nodules are present. Mediastinum and Clementine: No dominant adenopathy or fluid collection. The esophagus is unremarkable. Thyroid gland: Unremarkable. Lymph nodes: Unremarkable. Pleura: No effusion or pneumothorax. Heart: The heart is not dilated. No coronary artery calcifications are seen. No pericardial effusion . Aorta: Thoracic aorta non-dilated.Mild atherosclerotic calcification. Upper abdomen: Diffuse decreased attenuation of the liver suggesting fatty infiltration. Soft Tissues: Unremarkable. Bones: Within normal limits. IMPRESSION: No suspicious pulmonary nodules. Lung RADS Cat 1 - Negative: No nodules and definitely benign nodules Lung-RADS 1.0 CATEGORIES: Category 0 - Prior chest CT exam(s) being located for comparison. Category 1 - Annual screening in 12 months. No nodules or definitely benign nodules. Category 2 - Annual screening in 12 months. Benign appearance. Nodules with low likelihood of becomin g active cancer. Category 3 - 6-month follow-up. Probably benign. Short-term follow-up suggested. Nodules with low lik elihood of becoming active cancer. Category 4A - 3-month follow-up and CT/PET if >8 mm in size. Suspicious finding. Findings which requi re additional testing. Category 4B - Findings which require additional testing and tissue sampling. Suspicious finding. Category 4X - Category 3 or 4 nodules with additional features or imaging findings that increases the suspicion of malignancy. Modifier S- Potentially clinically significant finding. (Non lung cancer) RADIATION DOSE DELIVERED: 74.48mGy.cm Total DLP 74.48mGy.cmTotal DLP DATA REPOSITORY: All CT scans at this facility are submitted to the National Radiology Data Registry (NRDR) Dose Index Registry (DIR) with the [employer] ([employer]). RADIATION OPTIMIZATION: All CT scans at this facility use at least one of these dose optimization te chniques: automated exposure control; mA and/or kV adjustment per patient size (includes targeted exa ms where dose is matched to clinical indication); or iterative reconstruction.
== END ==
PROVIDERS: PCP Family Medicine; Visit Provider Family Medicine
DX: Z12.31 Encounter for screening mammogram for malignant neoplasm of breast (principal); Z78.0 Asymptomatic menopausal state; Z87.891 Personal history of nicotine dependence; Z12.2 Encounter for screening for malignant neoplasm of respiratory organs; Z13.820 Encounter for screening for osteoporosis
CPT/HCPCS: 71271; 77063; 77067; 77080

== ENCOUNTER 2024-04-03 03:51 | Outpatient (CLI) | payer MEDICARE, SELFPAY ==
[2024-04-03 10:33] LABS: HCT 43.2 % (36.0-46.0); HGB 14.4 g/dL (11.2-15.7); MCH 28.6 pg (27.0-33.0); MCHC 33.3 % (32.0-36.0); MCV 86 fL (80-95); Platelet Count 320 10^3/uL (130-400); RBC 5.03 10^6/uL (3.93-5.22); RDW 12.4 % (11.7-14.6); RDW-SD 38.5 fL; WBC 6.01 10^3/uL (4.4-10.8)
[2024-04-03 11:41] LABS: ALT 31 U/L (14-59); AST 17 U/L (15-37); Alkaline Phosphatase 89 U/L (46-116); Anion Gap 9.6 mmol/L (3-11); BUN 14 mg/dL (7-18); Bilirubin, Total 0.41 mg/dL (0.2-1.0); CO2 27.4 mmol/L (21.0-32.0); CREATININE 0.8 mg/dL (0.55-1.02); Calcium 9.3 mg/dL (8.5-10.1); Calculated LDL 215 mg/dL (<100); Chloride 104 mmol/L (98-107); Cholesterol 294 mg/dL (<200); Estimated GFR 83.78 (mL/min/1.73m2); Glucose 101 mg/dL (74-106); HDL Cholesterol 49 mg/dL (40-60); Potassium 4.1 mmol/L (3.5-5.1); Sodium 141 mmol/L (136-145); Total Protein 7.6 g/dL (6.4-8.2); Triglyceride 150 mg/dL (<150)
== END 2024-04-03 03:52 | disposition home or self-care (01) ==
LOC: LBO 03:51
PROVIDERS: PCP Family Medicine; Visit Provider Family Medicine
DX: D64.9 Anemia, unspecified (principal); E78.5 Hyperlipidemia, unspecified; I10 Essential (primary) hypertension
CPT/HCPCS: 36415; 80053; 80061; 85027

== ENCOUNTER 2024-05-27 16:27 | Outpatient (REF) | payer MEDICARE, SELFPAY ==
[2024-05-27 21:40] LABS: Bilirubin Negative (Negative); Blood Moderate (Negative); Clarity Clear (Clear); Glucose Negative (Negative); Ketones Negative (Negative); Leukocyte Esterase Small (Negative); Nitrite Negative (Negative); Urobilinogen 0.2 mg/dL (Up to 0.2)
[2024-05-27 21:55] LABS: Bacteria Few HPF (Negative); Crystals Negative HPF (Negative); Epithelial Cells Rare HPF (Negative); Mucus Negative (Negative); WBC 20-50 HPF (0-5)
[2024-05-27 21:56] LABS: C & S Indicated? Yes
== END 2024-05-27 16:28 | disposition home or self-care (01) ==
LOC: LBN 16:27
PROVIDERS: PCP Family Medicine; Visit Provider Family Medicine
DX: R35.0 Frequency of micturition (principal); B96.29 Other Escherichia coli [E. coli] as the cause of diseases classified elsewhere
CPT/HCPCS: 87077; 81003; 81015; 87086; 87186

== ENCOUNTER 2025-03-16 16:27 | Outpatient (REF) | payer MEDICARE, SELFPAY ==
[2025-03-16 13:58] LABS: Cannabinoids THC Negative (Negative); METHADONE URINE SCREEN Negative (Negative)
== END 2025-03-16 16:28 | disposition home or self-care (01) ==
LOC: LBN 16:27
PROVIDERS: PCP Family Medicine; Visit Provider Family Medicine
DX: G89.4 Chronic pain syndrome (principal); F98.8 Other specified behavioral and emotional disorders with onset usually occurring in childhood and adolescence
CPT/HCPCS: 80307

== ENCOUNTER 2025-05-13 03:34 | Outpatient (CLI) | payer MEDICARE, SELFPAY ==
--- NOTE | 2025-05-13 15:47 | DI.MAMMO_ITS ---
Exam(s) MAMMO SCREENING EXAM: MAMMO SCREENING CLINICAL HISTORY: ivan, z12.39 TECHNIQUE: Mammograms were interpreted according to the usual protocol including computer analysis with CAD system, tomosynthesis and C-view imaging. COMPARISON: 2016 through 2023 FINDINGS: The breasts are composed of scattered fibroglandular densities, Breast Density category B. No suspicious masses or suspicious microcalcifications are seen. There has been continued decrease in size of previously noted left breast nodules. No skin thickening or abnormal axillary lymph nodes are seen. There has been no significant change from prior exams. IMPRESSION: BI-RADS Category 2 - Benign Findings Yearly screening mammography is recommended. Breast Density - Category B - There are scattered areas of fibroglandular density. Breast density Category C or D implies that the patient has dense breast tissue. Dense breast tissue can make it harder to find cancer on a mammogram. Dense breast tissue is also associated with an increased risk of breast cancer. This information about the result of the mammogram report was provided to the patient to raise their awareness. Use this report when you speak with the patient about their risks for breast cancer, which includes their family history. At that time, you may recommend additional screening tests (Ultrasound or MRI) as these tests may add significant information. A negative radiographic report should not delay biopsy if a dominant or clinically suspicious mass is present. Up to ten percent of cancers are not identified on mammography. A negative report may reinforce clinical impression. Adenosis and dense breasts may obscure an underlying neoplasm. False positive reports average 6 to 10%. Patient will receive a letter notifying them of these results.
== END 2025-05-13 03:54 ==
LOC: DI 03:35
PROVIDERS: PCP Family Medicine; Visit Provider Family Medicine
DX: Z12.31 Encounter for screening mammogram for malignant neoplasm of breast (principal); R92.323 Mammographic fibroglandular density, bilateral breasts
CPT/HCPCS: 77063; 77067